=== PATIENT | female | born 1990 | race Caucasian/White ===

== ENCOUNTER 2019-11-08 11:25 | Emergency (ER) | payer OTHER, SELFPAY ==
[2019-11-08 11:42] VITALS: BP 129/80; PULSE 107; RESP 16; TEMP 37.2; O2SAT 99
--- NOTE | 2019-11-08 12:19 | ED.GENADULT ---
HPI - General Adult General Chief complaint: Upper Respiratory Infection Stated complaint: Fever/Cough/Back Pain/Vomiting/Mucus/Nausea/Chest Time Seen by Provider: 11/08/19 12:19 Source: patient Mode of arrival: ambulatory Limitations: no limitations History of Present Illness HPI narrative: 29-year-old female [facility] complaints of cold symptoms for the past 5 days. Patient states she has had nausea vomiting fevers that do come down with ibuprofen but continued to come right back. Patient states she is also had a little bit of abdominal pain states she has been feeling very bloated and full recently. Patient states that she is able to keep down fluids but is not able to eat anything. Patient states that she did have a D&C at [facility] on September 30. Patient states she has been having belly issues since then but denies any fevers until recently. Patient did not get a flu shot this year. Denies any runny nose, stuffy nose or sore throat. Related Data Home Medications Medication Instructions Recorded Confirmed ibuprofen 11/08/19 Allergies Allergy/AdvReac Type Severity Reaction Status Date / Time No Known Allergies Allergy Unverified 10/11/18 11:02 Review of Systems Review of Systems: Narrative: CONSTITUTIONAL: Positive fever, chills, body aches and sweats. EYES: Denies visual changes, redness, or discharge. ENT: Denies rhinorrhea, congestion, sore throat, or otalgia. CARDIOVASCULAR: Denies chest pain, palpitations, or edema. RESPIRATORY: Positive cough, denies dyspnea. GASTROINTESTINAL: Positive abdominal pain, nausea, vomiting, denies diarrhea. GENITOURINARY: Denies dysuria or hematuria. SKIN: Denies rash or itching. MUSCULOSKELETAL: Positive back pain, denies joint pain, or myalgia. NEUROLOGIC: Denies headache, numbness, or weakness. PSYCHIATRIC: Denies anxiety or depression. PMFSH Comments At the time of my signature I agree with nursing past medical history, surgical, social, and family history. There is no relevant family history pertinent to the presenting complaint. Exam Narrative: Exam Narrative: GENERAL: Well-appearing, well-nourished, and in no acute distress. HEAD: Normocephalic, atraumatic. No tenderness noted to frontal or maxillary sinuses on palpation. EYES: PERRLA and EOMI. ENT: Nares clear, no rhinorrhea or epistaxis. Mucous membranes moist. Posterior pharynx no erythema, tonsillar margin, exudates or lesions present. Bilateral TMs are clear no erythema or foreign bodies in the canal. NECK: Supple. No lymphadenopathy CHEST: Clear to auscultation. No respiratory distress. HEART: Regular rate and rhythm. No murmur heard. Normal peripheral pulses. ABDOMEN: Soft, distended. guarding noted to the right upper quadrant, no rebound tenderness, or rigid. Patient does have tenderness noted to the right upper quadrant on palpation. No pulsatilla masses. Bowel sounds present hyperactive in left upper and right upper quadrants. Bowel sounds are decreased to bilateral left lower and right lower quadrants. No organomegaly. Negative Butt?s sign. No periumbicial tenderness. No Supra public tenderness or distension. Good femoral pulses bilaterally. No hernia noted. No scars or surface trauma. EXTREMITIES: Normal range of motion. No edema. SKIN: Warm, dry, no rash. NEURO: No focal deficits. Alert and oriented x3. Course Vital Signs Vital signs: Vital Signs Temperature 37.2 C 11/08/19 11:42 Pulse Rate 107 H 11/08/19 11:42 Respiratory Rate 16 11/08/19 11:42 Blood Pressure 129/80 11/08/19 11:42 Pulse Oximetry 99 11/08/19 11:42 Temperature 37.2 C 11/08/19 11:42 Pulse Rate 107 H 11/08/19 11:42 Respiratory Rate 16 11/08/19 11:42 Blood Pressure 129/80 11/08/19 11:42 Pulse Oximetry 99 11/08/19 11:42 Vital signs reviewed. Transfer Transfered to: [place] Transportation: Other (Private vehicle) Transfer rationale: Right upper quad
== END 2019-11-08 12:40 | disposition short-term general hospital (02) ==
PROVIDERS: Emergency Provider Nurse Practitioner Family
DX: R10.11 Right upper quadrant pain (principal)
CPT/HCPCS: 87081; 87804; 87880; 99213; G0463

== ENCOUNTER 2019-11-08 13:34 | Emergency (ER) | payer OTHER, SELFPAY ==
[2019-11-08 13:36] VITALS: BP 133/80; PULSE 111; RESP 18; TEMP 36.6; O2SAT 96
[2019-11-08 13:45] LABS: Eosinophils Percent Auto 0.3 % (0-4.4); Hematocrit 39.8 % (37.0-47.0); Hemoglobin 13.1 g/dL (12.0-15.0); Immature Granulocyte Absolute 0.01 K/mm3 (0.00-0.031); Immature Granulocyte Percent A 0.3 % (0-0.5); Lymphocytes Absolute Auto 1.42 K/mm3 (0.9-3.2); Lymphocytes Percent Auto 36.3 % (18.3-44.2); Mean Corpuscular HGB Conc 32.9 g/dl (32-36); Mean Corpuscular Hemoglobin 31.6 pg (26-34); Mean Corpuscular Volume 95.9 fl (80-100); Mean Platelet Volume 10.5 fl (7.4-10.4); Monocytes Absolute Auto 0.5 K/mm3 (0.1-0.6); Monocytes Percent Auto 13.8 % (2.6-8.5); Neutrophils Absolute Auto 1.9 K/mm3 (1.3-6.7); Neutrophils Percent Auto 49.3 % (45.5-73.1); Platelet Count Result 157 k/mm3 (150-375); Red Blood Count 4.15 M/mm3 (4.2-5.4); Red Cell Distribution Width 11.9 % (11.5-14.5); White Blood Count 3.9 K/mm3 (4.5-10.0)
[2019-11-08 13:59] LABS: Alanine Aminotransferase 20 U/L (4-35); Albumin Level 4.2 g/dL (3.5-5.1); Alkaline Phosphatase 81 U/L (38-126); Aspartate Amino Transferase 26 U/L (14-36); Bilirubin,Total 0.5 mg/dL (0.2-1.3); Blood Urea Nitrogen 11 mg/dL (7-17); Calcium 8.7 mg/dL (8.4-10.2); Carbon Dioxide 22 mmol/L (22-30); Chloride 101 mmol/L (98-107); Estimated CRCL calculation 121 ml/min; Estimated Glomerular Filt Rate > 60; Glucose 89 mg/dL (65-105); Lipase 33 U/L (23-300); Potassium 3.8 mmol/L (3.4-5.0); Sodium 138 mmol/L (137-145)
--- NOTE | 2019-11-08 14:22 | ED.ABDPAIN ---
HPI - Abdominal Pain General Chief Complaint: Abdominal Pain Stated Complaint: upper abd pain/vomiting/from express care Time Seen by Provider: 11/08/19 13:38 Source: patient Mode of arrival: ambulatory Limitations: no limitations History of Present Illness HPI narrative: Patient is a 29-year-old female who presents with upper respiratory symptoms congestion rhinorrhea sore throat cough for the last week with child that is also sick had negative strep and influenza recently patient notes she continues to have upper respiratory symptoms also noting that she has had some abdominal discomfort for the last month after having D&C patient is followed by gynecology for this and was reassured that it is to be expected given the recent D&C. Patient does note she has had a few episodes of nausea and emesis. Patient denies any vaginal bleeding discharge urinary symptoms or hematemesis or rectal bleeding. On arrival patient resting comfortably in the room in no distress presenting from urgent care Related Data Allergies Allergy/AdvReac Type Severity Reaction Status Date / Time No Known Allergies Allergy Verified 11/08/19 13:56 Review of Systems Review of Systems: All systems reviewed & are unremarkable except as noted in HPI and below PMFSH Surgical History Surgical History (Updated 11/08/19 @ 14:24 by Jere Henderson PA-C) History of D&C Social History Social History Gender identity (if verbalized by the patient): Female Exam Narrative: Exam Narrative: GENERAL: Well-appearing, well-nourished, and in no acute distress. HEAD: Normocephalic, atraumatic. EYES: PERRLA and EOMI. ENT: Nares clear, no rhinorrhea or epistaxis. Mucous membranes moist. Oropharynx without tonsillar hypertrophy exudate or other lesions. Bilateral TMs nonbulging with slight erythema NECK: Supple. No adenopathy or masses. CHEST: Clear to auscultation. No respiratory distress. No wheezes rales or rhonchi HEART: Regular rate and rhythm. No murmur heard. Normal peripheral pulses. ABDOMEN: Soft, right upper abdominal tenderness, nondistended, normal active bowel sounds. EXTREMITIES: Normal range of motion. No edema. SKIN: Warm, dry, no rash. NEURO: No focal deficits. Alert and oriented x3. PSYCH: Normal mood and affect. Course Course Emergency Course: Patient in the room in no distress aware of case findings treatment plan and diagnosis will be treated symptomatically Vital Signs Vital signs: Vital Signs Temperature 98 F 11/08/19 13:36 Pulse Rate 111 H 11/08/19 13:36 Respiratory Rate 18 11/08/19 13:36 Blood Pressure 133/80 11/08/19 13:36 Pulse Oximetry 96 11/08/19 13:36 Temperature 98 F 11/08/19 13:36 Pulse Rate 111 H 11/08/19 13:36 Respiratory Rate 18 11/08/19 13:36 Blood Pressure 133/80 11/08/19 13:36 Pulse Oximetry 96 11/08/19 13:36 MDM - Abdominal Pain MDM Narrative Medical decision making narrative: Patient in the room without any high risk changes in the blood work or imaging afebrile nontoxic-appearing no distress felt appropriate for outpatient reevaluation by primary care provided with reasons to return Lab Data Result diagrams: 11/08/19 13:40 11/08/19 13:40 Labs: Lab Results 11/08/19 11/08/19 11/08/19 Range/Units 13:40 13:40 14:38 WBC 3.9 L (4.5-10.0) K/mm3 RBC 4.15 L (4.2-5.4) M/mm3 Hgb 13.1 (12.0-15.0) g/dL Hct 39.8 (37.0-47.0) % MCV 95.9 (80-100) fl MCH 31.6 (26-34) pg MCHC 32.9 (32-36) g/dl RDW 11.9 (11.5-14.5) % Plt Count 157 (150-375) k/mm3 MPV 10.5 H (7.4-10.4) fl Immature Gran % (Auto) 0.3 (0-0.5) % Neut % (Auto) 49.3 (45.5-73.1) % Lymph % (Auto) 36.3 (18.3-44.2) % York % (Auto) 13.8 H (2.6-8.5) % Eos % (Auto) 0.3 (0-4.4) % Baso % (Auto) 0.0 L (0.2-1.2) % Lymph # (Auto) 1.42 (0.9-3.2) K/mm3 York # (Auto) 0.5 (
[2019-11-08] MEDS: ONDANSETRON INJ 4 MG/2 ML VIAL IV PUSH (14:41)
[2019-11-08] MEDS: SODIUM CHLORIDE 0.9% IV 1,000 ML 999 ML IV CONT (14:41)
[2019-11-08 15:06] LABS: Add Urine Microscopic? YES; Appearance Urine Clear (Clear); Bacteria Urine Trace /hpf; Bilirubin Urine Negative (Negative); Blood Urine 1+ (Negative); Color Urine Yellow (Yellow); Glucose Urine UA Negative (Negative); Ketones Urine 1+ mg/dL (Negative); Leukocyte Esterase Ur Negative LEU/UL (Negative); Mucus Urine Heavy /lpf; Nitrate Urine Negative (Negative); Protein Urine Negative (Negative); Specific Grav Ur 1.023 (1.001-1.035); Squamous Epithelial Cell Urine Many /hpf (Few); WBC Urine 0-3 /hpf
[2019-11-08 15:51] VITALS: BP 120/80; PULSE 80; RESP 20; TEMP 36.7; O2SAT 99
--- NOTE | 2019-11-15 19:29 | PC.NURSE ---
LATE ENTRY This note is being entered to document information to the patient's record. The following information was omitted on 11/08/19, by CATIE Becker. Pt received 1L NS per order and infusion completed 1 hr after initiation.
== END 2019-11-08 15:52 | disposition home or self-care (01) ==
PROVIDERS: Emergency Provider Emergency Medicine
DX: J06.9 Acute upper respiratory infection, unspecified (principal); R10.11 Right upper quadrant pain
CPT/HCPCS: 36415; 80053; 81001; 81025; 83690; 85025; 96365; 96375; 99284; J0131; J2405; J7030

== ENCOUNTER 2019-12-12 08:12 | Emergency (ER) | payer OTHER, SELFPAY ==
[2019-12-12 08:27] VITALS: BP 135/88; PULSE 120; RESP 16; TEMP 37.9; O2SAT 98
--- NOTE | 2019-12-12 08:34 | ED.URI ---
HPI - URI/Sore Throat General Chief Complaint: Upper Respiratory Infection Stated Complaint: Fever/Possible Strep Time Seen by Provider: 12/12/19 08:35 Source: patient and RN notes reviewed Mode of arrival: ambulatory Limitations: no limitations History of Present Illness HPI Narrative: 29-year-old female presents with concern for low-grade fever, body aches, cough, sore throat, sinus drainage. Reports symptoms started Sunday morning. Denies taking any medications for symptoms. MD elicited complaint: sore throat Related Data Home Medications Medication Instructions Recorded Confirmed etonogestrel [Nexplanon] 1 implant SUBDERMAL ONCE 12/12/19 12/12/19 Allergies Allergy/AdvReac Type Severity Reaction Status Date / Time No Known Allergies Allergy Verified 11/08/19 13:56 Review of Systems Review of Systems: Narrative: CONSTITUTIONAL: Reports malaise, chills, sweats, fever. EYES: Denies visual changes, redness, or discharge. ENT: Reports rhinorrhea, sore throat. Denies congestion, sinus pain, otalgia. CARDIOVASCULAR: Denies chest pain, palpitations, or edema. RESPIRATORY: Reports cough. Denies dyspnea. GASTROINTESTINAL: Denies abdominal pain, nausea, vomiting, diarrhea SKIN: Denies rash or itching. MUSCULOSKELETAL: Reports myalgia. NEUROLOGIC: Denies headache. All systems reviewed & are unremarkable except as noted in HPI and below PMFSH Surgical History Surgical History (Updated 11/08/19 @ 14:24 by Jere Henderson PA-C) History of D&C Social History Social History Gender identity (if verbalized by the patient): Female Comments At time of signature, agree with nursing past medical, surgical, social and family history. There is no relevant family history pertinent to the presenting complaint Exam Narrative: Exam Narrative: GENERAL: Well-appearing, well-nourished, and in no acute distress. HEAD: Normocephalic EYES: PERRLA, conjunctivae clear ENT: Nares clear, turbinates edematous and erythematous, clear discharge. Mucous membranes moist. TM pearly roberson with dull light reflex bilaterally; no tragal tenderness. Oropharynx erythematous without lesions. Tonsils enlarged and without exudate, no drooling, no hoarseness, no trismus, uvula midline. NECK: Supple. No lymphadenopathy CHEST: Clear to auscultation, breath sounds equal. No wheezing, rhonchi, rales, or stridor. No respiratory distress, speaks in full sentences. HEART: Regular rate and rhythm. No murmur heard. SKIN: Warm, dry, no rash. NEURO: Alert and oriented x3. PSYCH: Normal mood and affect Course Course Emergency Course: Patient is aware of diagnosis, understands and agrees to treatment plan. Anticipatory guidance given. Patient agrees to follow-up as directed and is aware of reasons to seek care at the emergency department. Portions of this record may have been created with voice recognition software Vital Signs Vital signs: Vital Signs Temperature 100.3 F H 12/12/19 08:27 Pulse Rate 120 H 12/12/19 08:27 Respiratory Rate 16 12/12/19 08:27 Blood Pressure 135/88 12/12/19 08:27 Pulse Oximetry 98 12/12/19 08:27 Temperature 100.3 F H 12/12/19 08:27 Pulse Rate 120 H 12/12/19 08:27 Respiratory Rate 16 12/12/19 08:27 Blood Pressure 135/88 12/12/19 08:27 Pulse Oximetry 98 12/12/19 08:27 Reviewed. MDM - URI/Sore Throat MDM Narrative Medical decision making narrative: Differential diagnosis considered: Strep pharyngitis, allergic rhinitis, upper respiratory tract infection, sinusitis, rhinosinusitis, nasopharyngitis. viral pharyngitis, otitis media, otitis externa, pneumonia, bronchitis, viral cough syndrome, viral syndrome, and influenza. Exam findings show no acute concerns or changes; patient is non-toxic appearing and is in no distress. Patient is appropriate for outpatient treatment and follow-up. Lab Data Attestation: I reviewed the patient's lab results.
== END 2019-12-12 09:15 | disposition home or self-care (01) ==
PROVIDERS: Emergency Provider Nurse Practitioner
DX: R50.9 Fever, unspecified (principal); R05 Cough; J02.9 Acute pharyngitis, unspecified; J34.89 Other specified disorders of nose and nasal sinuses
CPT/HCPCS: 87081; 87880; 99213; G0463

== ENCOUNTER 2020-12-30 16:01 | Emergency (ER) | payer OTHER, SELFPAY ==
[2020-12-30 16:15] VITALS: BP 135/84; PULSE 87; RESP 18; TEMP 36.1; O2SAT 98
--- NOTE | 2020-12-30 16:25 | ED.FEMALEGU ---
HPI - Female Genitourinary General Chief complaint: Urogenital-Female Stated complaint: UTI Time Seen by Provider: 12/30/20 16:25 Source: patient Mode of arrival: ambulatory Limitations: no limitations History of Present Illness HPI Narrative: Alyssa Suresh is a 30 yo female with no PMH who comes to [facility] with dysuric symptoms x10 days. States that she has been having frequency and feeling uncomfortable in her lower abdomen has tried treating with Azo with no success. States that in the last year to her back and started her patella bilaterally do it is a deep tenderness and no nausea vomiting or fever Related Data Allergies Allergy/AdvReac Type Severity Reaction Status Date / Time No Known Allergies Allergy Verified 12/30/20 16:12 Review of Systems Review of Systems: Narrative: CONSTITUTIONAL: Denies fever, chills, sweats. EYES: Denies visual changes, redness, discharge. ENT: Denies rhinorrhea, congestion, sore throat, otalgia. CARDIOVASCULAR: Denies chest pain, palpitations, edema. RESPIRATORY: Denies dyspnea, wheezing, cough GASTROINTESTINAL: Denies abdominal pain, nausea, vomiting, diarrhea. GENITOURINARY: Has dysuria, no hematuria, abnormal discharge SKIN: Denies rash or itching. NEUROLOGIC: Denies numbness, or focal weakness. PSYCHIATRIC: Denies anxiety or depression. PMFSH Past Medical History Medical History URI (upper respiratory infection) Surgical History Surgical History History of D&C Family History Family History Mother Multiple sclerosis Grandparent Pancreatic cancer Social History Social History Gender identity (if verbalized by the patient): Female Comments At time of signature, I agree with nursing past medical, surgical, social and family history. There is no relevant family history pertinent to the presenting complaint. Exam Narrative: Exam Narrative: GENERAL: This is a well-nourished, well-developed patient, in mild distress. HEAD: normocephalic, atraumatic. EYES: Sclera clear/white. Vision is grossly intact. EARS: External ears normal. Hearing grossly intact. NOSE: External nose normal without nasal discharge, nares without redness, no rhinorrhea. THROAT: Mucous membranes moist, NECK: Neck supple, CARDIOVASCULAR: Regular rate and rhythm without murmurs, gallops, or rubs. RESPIRATORY: Clear to auscultation. Breath sounds equal bilaterally. No wheezes, rales, or rhonchi. GASTROINTESTINAL: Abdomen soft, non-tender, SKIN: warm, intact with no suspicious lesions or rash, good texture and turgor. NEURO: awake, alert, and oriented to person, place and time. There were no obvious focal neurologic abnormalities. Steady gait EXTREMITIES: Normal range of motion. BACK: tender without deformity; complaining of the back pain on palpation Course Course Emergency Course: Patient a 30-year-old female with no PMH who comes to [facility] with symptoms of UTI x10 days she complains of frequency and some pressure, no fever no nausea vomiting UA shows trace leukocytes and trace blood Started on Keflex 500 mg x 7 days and Pyridium 100 mg 1 3 times daily as needed Discussed hydration and management of UTI and avoidance of same symptoms in the future Vital Signs Vital signs: Vital Signs Temperature 97.0 F L 12/30/20 16:15 Pulse Rate 87 12/30/20 16:15 Respiratory Rate 18 12/30/20 16:15 Blood Pressure 135/84 12/30/20 16:15 Pulse Oximetry 98 12/30/20 16:15 Temperature 97.0 F L 12/30/20 16:15 Pulse Rate 87 12/30/20 16:15 Respiratory Rate 18 12/30/20 16:15 Blood Pressure 135/84 12/30/20 16:15 Pulse Oximetry 98 12/30/20 16:15 MDM - Female Genitourinary Differential Diagnosis Differential diagnosis: Likely
== END 2020-12-30 16:42 | disposition home or self-care (01) ==
PROVIDERS: Emergency Provider Nurse Practitioner
DX: N30.90 Cystitis, unspecified without hematuria (principal)
CPT/HCPCS: 81003; 87077; 87086; 87088; 87186; 99213; G0463

== ENCOUNTER 2021-03-11 11:45 | Emergency (ER) | payer OTHER, SELFPAY ==
--- NOTE | ~2021-03-11 | XR_ITS ---
XR knee RT min 4V 03/11/2021 12:57 Indication: Right knee pain Procedure: 4 views right knee Comparison: No prior studies for comparison. Findings: No acute fracture, subluxation or dislocation. There is a bipartite patella, normal variant . No joint effusion. No soft tissue abnormality. No foreign bodies. Impression: 1: No acute bone or joint abnormality. Reviewed, dictated and finalized at location A. Impression: 1: No acute bone or joint abnormality.
[2021-03-11 12:10] VITALS: BP 139/95; PULSE 128; RESP 18; TEMP 37.1; O2SAT 98
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
== END 2021-03-11 14:35 | disposition home or self-care (01) ==
PROVIDERS: Emergency Provider Family Medicine
DX: S83.91XA Sprain of unspecified site of right knee, initial encounter (principal); X50.0XXA Overexertion from strenuous movement or load, initial encounter
CPT/HCPCS: 73564; 99283

== ENCOUNTER 2021-07-28 09:11 | Emergency (ER) | payer OTHER, SELFPAY ==
[2021-07-28 09:20] VITALS: BP 112/78; PULSE 86; RESP 16; TEMP 36.2; O2SAT 100
== END 2021-07-28 09:53 | disposition left against medical advice (07) ==
PROVIDERS: Emergency Provider Nurse Practitioner
DX: Z53.21 Procedure and treatment not carried out due to patient leaving prior to being seen by health care provider (principal)
CPT/HCPCS: 99199

== ENCOUNTER 2021-09-20 19:23 | Emergency (ER) | payer OTHER, SELFPAY ==
[2021-09-20 19:31] VITALS: BP 121/83; PULSE 93; RESP 16; TEMP 37; O2SAT 100
--- NOTE | 2021-09-20 19:35 | ED.URI ---
HPI - URI/Sore Throat General Chief Complaint: Upper Respiratory Infection Stated Complaint: congestion/rosario Time Seen by Provider: 09/20/21 19:35 Source: patient, RN notes reviewed and old records reviewed Mode of arrival: ambulatory Limitations: no limitations History of Present Illness HPI Narrative: 31-year-old female presents to the [facility] with 1 day of congestion and headache. Reports a fever of 101. 4. Generalized body aches and loss of taste and smell. Patient states that she needs a Covid test now because she cannot go back to work and will be fired unless she has 1. Discussed with her that this is less than 24 hours of symptoms and she withdrew our drive-through. MD elicited complaint: fever Related Data Home Medications Medication Instructions Recorded Confirmed No Home Medications 07/28/21 07/28/21 Allergies Allergy/AdvReac Type Severity Reaction Status Date / Time No Known Allergies Allergy Verified 07/28/21 09:29 Review of Systems Review of Systems: All systems reviewed & are unremarkable except as noted in HPI and below Constitutional: Constitutional: Reports as per HPI, Denies chills, Reports fever(s) (One 1.4 yesterday) and Denies weakness Eyes: Eyes: Reports no additional eye complaints ENT: Reports as per HPI and Reports nasal congestion Cardiovascular: Cardiovascular: Reports no additional cardiovascular complaints and Denies chest pain Respiratory: Respiratory: Reports no additional respiratory complaints, Denies cough, Denies dyspnea and Denies wheezing Gastrointestinal: Gastrointestinal: Reports no additional gastrointestinal complaints, Denies abdominal pain, Denies nausea and Denies vomiting Musculoskeletal: Musculoskeletal: Reports as per HPI and Reports myalgias Integumentary/Breasts: Skin/Breast: Reports system reviewed and no additional complaints, except as docu Neurologic: Reports as per HPI and Reports headache(s) Psychiatric: Psychiatric: Reports no additional psychiatric complaints Allergic/Immunologic: Allergic/Immunologic: Reports no additional allergic/immunologic complaints [facility] Past Medical History Medical History URI (upper respiratory infection) Surgical History Surgical History History of D&C Family History Family History Mother Multiple sclerosis Grandparent Pancreatic cancer Social History Social History Gender identity (if verbalized by the patient): Female Comments At the time of my signature, I reviewed and agree with the nursing past medical, surgical, social, and family history. There is no relevant family history pertinent to the patient complaint. Exam Const: General: healthy appearing, no acute distress and alert Nutritional Appearance: well nourished and obese Orientation/consciousness: patient oriented x3 Limitations: no limitations HENMT: Head: normal to inspection Ears: external ears normal, TM's normal bilaterally and EAC's normal General nose exam: Normal external nose present and Normal nasal mucous membranes and turbinates present Face and sinus: normal facial exam Mouth: Yes Normal oral and palatal mucosa present Throat: posterior oropharynx normal Eyes: Conjunctivae: conjunctivae normal Pupils: Equal, round and reactive pupils present Neck: Neck: normal visual inspection, no lymphadenopathy and no meningeal signs Chest: Chest palpation & inspection: normal inspection of the chest Resp: Effort & Inspection: normal respiratory effort Auscultation: clear to auscultation bilaterally Cardio: Rate: regular rate Rhythm: regular rhythm GI: GI Palp: Yes Soft to palpation and No Tenderness to palpation present (GI) Back/Spine/Pelvis: Back: no CVA tenderness Skin: General skin exam: normal color
== END 2021-09-20 19:45 | disposition home or self-care (01) ==
PROVIDERS: Emergency Provider Nurse Practitioner
DX: J06.9 Acute upper respiratory infection, unspecified (principal); Z20.822 Contact with and (suspected) exposure to COVID-19
CPT/HCPCS: 99213; G0463

== ENCOUNTER → 2021-09-22 02:29 | Outpatient (CLI) | payer OTHER, SELFPAY ==
[2021-09-22 20:33] LABS: SARS-CoV-2 RNA PCR Positive
== END ==
PROVIDERS: Visit Provider Nurse Practitioner
DX: U07.1 COVID-19 (principal)
CPT/HCPCS: C9803; U0003; U0005

== ENCOUNTER 2022-12-04 15:14 | Emergency (ER) | payer OTHER, SELFPAY ==
[2022-12-04 15:23] VITALS: BP 121/72; PULSE 86; RESP 16; TEMP 36.4; O2SAT 99
[2022-12-04 15:51] LABS: Basophils Percent Auto 0.3 % (0.2-1.2); Eosinophils Absolute Auto 0.1 K/mm3 (0-0.3); Hematocrit 40.1 % (37.0-47.0); Hemoglobin 13.4 g/dL (12.0-15.0); Immature Granulocyte Absolute 0.03 K/mm3 (0.00-0.031); Immature Granulocyte Percent A 0.5 % (0-0.5); Lymphocytes Absolute Auto 1.64 K/mm3 (0.9-3.2); Lymphocytes Percent Auto 27.9 % (18.3-44.2); Mean Corpuscular HGB Conc 33.4 g/dl (32-36); Mean Corpuscular Hemoglobin 33.3 pg (26-34); Mean Corpuscular Volume 99.8 fl (80-100); Monocytes Absolute Auto 0.5 K/mm3 (0.1-0.6); Monocytes Percent Auto 8.3 % (2.6-8.5); Neutrophils Absolute Auto 3.6 K/mm3 (1.3-6.7); Platelet Count Result 191 k/mm3 (150-375); Red Blood Count 4.02 M/mm3 (4.2-5.4); Red Cell Distribution Width 12.1 % (11.5-14.5); White Blood Count 5.9 K/mm3 (4.5-10.0)
--- NOTE | 2022-12-04 21:45 | PC.NURSE ---
CATIE Leos called patient's name twice in waiting room. No answer when called. No one in bathrooms. Patient no where to be found in department.
== END 2022-12-04 21:45 | disposition left against medical advice (07) ==
LOC: ANHED 21:52
PROVIDERS: Emergency Provider Emergency Medicine
DX: N93.9 Abnormal uterine and vaginal bleeding, unspecified (principal)
CPT/HCPCS: 36415; 84702; 85025; 85461; 86850; 86900; 86901; 99199

== ENCOUNTER 2022-12-20 12:52 | Outpatient (CLI) | payer OTHER, SELFPAY ==
[2022-12-20 13:13] LABS: Hematocrit 41.7 % (37.0-47.0)
== END 2022-12-20 12:53 | disposition home or self-care (01) ==
LOC: ANHLAB 12:54
PROVIDERS: Visit Provider Student in an Organized Health Care Education/Training Program
DX: O03.9 Complete or unspecified spontaneous abortion without complication (principal); Z3A.00 Weeks of gestation of pregnancy not specified
CPT/HCPCS: 36415; 85014; 85018

== ENCOUNTER 2024-08-19 13:21 | Outpatient (CLI) | payer OTHER, SELFPAY ==
--- NOTE | ~2024-08-19 | US_ITS ---
US pelvic complete w TV Ordering provider: Mark Anthony Watts MD History: . N92.6 - Irregular menstruation, unspecified . Comparison: None. Technique: Transabdominal and endovaginal ultrasound of the pelvis (Doppler ultrasound interrogation techniques used as needed for this exam.) FINDINGS: CERVIX: Multiple nabothian cysts. UTERUS: Measures 8.8x 3.1x 5.1 cm in length which is within normal limits and is anteverted. No myom etrial masses. ENDOMETRIUM: Normal in thickness measuring 7 mm. No endometrial masses, cysts or fluid. CUL DE SAC: Minimal free fluid. RIGHT OVARY: Normal in size measuring 2.8x 1.9x 2.6 m. Normal echotexture. Doppler vascular flow pres ent. Multiple follicles. LEFT OVARY: Normal in size measuring 2.9x 2.6x 2.7 cm. Normal echotexture. Doppler vascular flow pres ent. Simple Cyst is seen measuring 1.7 x 1.3 x 1.5 cm. Follicles are also noted. ADNEXA: Normal. No mass. IMPRESSION: Left simple ovarian cyst. Minimal fluid in the cul-de-sac. Nabothian cysts. Otherwise, normal pelvic ultrasound. Reviewed, dictated and finalized at location A. LATIVE EFFECTS ANALYST IMPRESSION: Left simple ovarian cyst. Minimal fluid in the cul-de-sac. Nabothian cysts. Oth erwise, normal pelvic ultrasound.
== END 2024-08-19 13:22 | disposition home or self-care (01) ==
LOC: ANHIMG 13:23
PROVIDERS: Visit Provider Student in an Organized Health Care Education/Training Program
DX: N92.6 Irregular menstruation, unspecified (principal); N96 Recurrent pregnancy loss; N83.202 Unspecified ovarian cyst, left side
CPT/HCPCS: 76830; 76856

== ENCOUNTER 2024-09-08 10:17 | Outpatient (CLI) | payer OTHER, SELFPAY ==
[2024-09-10 14:39] LABS: Anti Mullerian Hormone,Female 3.56 ng/mL (0.18-5.68)
== END 2024-09-08 10:18 | disposition home or self-care (01) ==
LOC: ANHLAB 10:19
PROVIDERS: Visit Provider Student in an Organized Health Care Education/Training Program
DX: N96 Recurrent pregnancy loss (principal)
CPT/HCPCS: 36415; 83036; 84443